=== PATIENT | male | born 1960 | race African-American/Black ===

== ENCOUNTER 2017-10-16 13:53 | Emergency (ER) | payer BC ==
[~2017-10-16] VITALS: Ht 185.4 cm; Wt 118.0 kg
[2017-10-16 14:15] VITALS: BP 141/79
== END 2017-10-16 18:30 | disposition left against medical advice (07) ==
LOC: ER 15:39
DX: R50.9 Fever, unspecified (principal); Z53.21 Procedure and treatment not carried out due to patient leaving prior to being seen by health care provider